=== PATIENT | male | born 1995 | race Two or more races ===

== ENCOUNTER 2020-05-06 20:47 | Emergency (ER) | payer OTHER ==
[~2020-05-06] VITALS: Ht 177.8 cm; Wt 111.8 kg
[2020-05-06 21:35] VITALS: BP 122/80
[2020-05-06] MEDS ORDERED: KETOROLAC TROMETHAMINE 30 MG/ML VIAL IM ONE (21:45)
== END 2020-05-06 22:17 | disposition home or self-care (01) ==
LOC: EMS 20:50
DX: M54.16 Radiculopathy, lumbar region (principal)
CPT/HCPCS: 96372; 99283; J1885